=== PATIENT | female | born 1990 | race Caucasian/White ===

== ENCOUNTER 2016-10-06 10:19 | Emergency (ER) | payer BC, OTHER ==
[2016-10-06] MEDS ORDERED: MORPHINE SULFATE INJ 10 MG/ML VIAL IV ONE ×2 (10:51→11:57)
--- NOTE | 2016-10-06 10:54 | ED.PDOC ---
History of Present Illness - General Chief Complaint: APPOINTMENT SPECIALIST Problem Stated Complaint: abdominal pain, nausea, dizziness Time Seen by Provider: 10/06/16 10:50 Source: patient Exam Limitations: no limitations - History of Present Illness Initial Comments: Patient presents with abdominal pain and cramping for one day. She is a at 6 weeks by LMP. She says the pain is "all over". It is associated with vaginal bleeding. She has some nausea that she says is from the pain. She did not have similar pain with her first . No other complaints. Timing/Duration: 1-3 hours Severity: moderate Improving Factors: nothing Worsening Factors: nothing Associated Symptoms: nausea/vomiting Allergies/Adverse Reactions: Allergies NO KNOWN ALLERGY Allergy (Verified 10/06/16 10:33) Review of Systems - Review of Systems Constitutional: States: no symptoms reported EENTM: States: no symptoms reported Respiratory: States: no symptoms reported Cardiology: States: no symptoms reported Genitourinary: States: see HPI Musculoskeletal: States: no symptoms reported Skin: States: no symptoms reported Neurological: States: no symptoms reported Endocrine: States: no symptoms reported Hematologic/Lymphatic: States: no symptoms reported Past Medical History (General) - Patient Medical History Hx Stroke: No Hx Congestive Heart Failure: No Hx Diabetes: No - Vaccination History Hx Influenza Vaccination: No Hx Pneumococcal Vaccination: No - Social History Hx Tobacco Use: No - Female History Patient is a Female of Child Bearing Age (10 -59 yrs old): Yes Patient : Yes - about 6 weeks Family Medical History - Family History Mother Family History: No Known Living Status: Still Living Physical Exam - Physical Exam General Appearance: Alert Ears, Nose, Throat: normal ENT inspection Neck: non-tender, full range of motion, supple Respiratory: lungs clear Cardiovascular/Chest: regular rate, rhythm Gastrointestinal/Abdominal: tenderness, other - NABS Back Exam: no CVA tenderness Skin Exam: normal color Lymphatic: no adenopathy Progress - Progress Progress: 10/06/16 11:34 U/S showed right tubal . 10/06/16 11:44 10/06/16 11:46 Morphine 4 mg IV x one. Zofran 4 mg IV x one. NS one liter IV bolus. SBP ranging 70s-80s. Regular rate and rhythm. Afebrile. Patient transferred to [facility]. Departure - Departure Clinical Impression: Ectopic without intrauterine Disposition: Transfer to Hospital Condition: Good Departure Forms: ED Discharge - Pt. Copy, Patient Portal Self Enrollment Diet: other - NPO Activity: other - As per hospitalist
[2016-10-06] MEDS ORDERED: ONDANSETRON 4 MG TAB ONE (11:01)
[2016-10-06] MEDS ORDERED: ONDANSETRON 4 MG TAB PO ONE (11:06)
[2016-10-06] MEDS ORDERED: SODIUM CHLORIDE 0.9% 1000ML 1,000 ML IVS ONE ×3 (11:32→12:46)
[2016-10-06] MEDS ORDERED: SODIUM CHLORIDE 0.9% 1000ML 1,000 ML ONE (11:34)
[2016-10-06] MEDS ORDERED: diphenhydrAMINE HCL 50 MG/ML VIAL IV ONE (11:55)
--- NOTE | 2016-10-06 12:08 | US ---
EXAM DESCRIPTION: Endovaginal pelvic sonogram. CLINICAL HISTORY: . Abdominal pain. COMPARISON: None. FINDINGS: Uterus is normal measuring 9.2 x 4.4 x 4 cm. Normal endometrial stripe thickness of 4 mm. No intrauterine Mass lesion in the right adnexa measures about 5.3 x 6.5 x 3.5 cm. Cystic component consistent with a gestational sac. A crown-rump length measurement of the fetus within the sac about 1.2 cm, 7 weeks 2 days gestation. No cardiac activity is identified. Moderate amount of fluid in the pelvis, containing low-level echoes consistent with hemorrhage. No abnormality of the left ovary IMPRESSION: Ectopic in the right adnexa. Moderate amount of fluid/ hemorrhage in the pelvis consistent with ruptured ectopic . These findings were called to Dr. Wallace Bhakta Electronically signed by: Akash Trejo MD 10/06/2016 12:07
[2016-10-06] MEDS ORDERED: DEXTROSE 5% 250ML 250 ML ONE (12:25)
[2016-10-06] MEDS ORDERED: NOREPINEPHRINE BITARTRATE 4 MG/4 ML VIAL IVPB ONE (12:25)
[2016-10-06] MEDS: NOREPINEPHRINE BITARTRATE 4 MG in DEXTROSE 5% 250ML 250 ML IVPB SCH ×2 (12:34→13:35)
[2016-10-06] MEDS ORDERED: SODIUM CHLORIDE 0.9% 500ML 500 ML ONE (13:04)
[2016-10-06] MEDS ORDERED: SODIUM CHLORIDE 0.9% 250ML 250 ML ONE (13:09)
[2016-10-06] MEDS ORDERED: fentaNYL CITRATE INJ 50 MCG/ML AMP IV ONE (13:17)
[2016-10-06] MEDS ORDERED: ONDANSETRON INJ 4 MG/2 ML VIAL ONE (13:34)
[2016-10-06] MEDS ORDERED: diphenhydrAMINE HCL 50 MG/ML VIAL ONE (13:36)
[2016-10-06 14:14] VITALS: BP 90/44; TEMP 96.9; O2SAT 100
== END 2016-10-06 13:40 | disposition short-term general hospital (02) ==
LOC: ER 10:19
DX: O00.10 Tubal pregnancy without intrauterine pregnancy (principal)
CPT/HCPCS: 36415; 76813; 80053; 84702; 85014; 85018; 85025; 86140; 86850; 86900; 86901; 86922; 87798; J1200; J2270; J2405; J3010; J7030; J7040; J7050; J7060; P9016